=== PATIENT | female | born 1995 ===

== ENCOUNTER 2018-07-08 09:31 | Emergency (ER) | payer OTHER ==
[2018-07-08 09:54] VITALS: BMI 25.0
[2018-07-08 09:57] VITALS: O2SAT 100
[2018-07-08 10:08] LABS: HCG,QUALITATIVE URINE NEGATIVE (NEGATIVE)
[2018-07-08 10:11] LABS: SQUAMOUS EPITHIAL 4 /hpf (0-5); URINE BACTERIA FEW (<OCC); URINE BILIRUBIN NEGATIVE (NEGATIVE); URINE BLOOD NEGATIVE (NEGATIVE); URINE CLARITY Hazy (Clear); URINE COLOR Yellow (YELLOW); URINE GLUCOSE (UA) NORMAL (Normal); URINE LEUKOCYTE ESTERASE NEG Leu/uL (Negative); URINE PROTEIN NEGATIVE (NEGATIVE); URINE UROBILINOGEN NORMAL mg/dL (0.2-1.0)
[2018-07-08 10:24] LABS: HCG,QUALITATIVE URINE POSITIVE (NEGATIVE)
--- NOTE | 2018-07-08 10:25 | C.PDOC ---
History Of Present Illness 22 year old female presents to the ED for evaluation of suprapubic pain and nausea which began around one month ago. Patient states her period has been irregular and her last menstrual period was two months ago. She is unsure if she is . Patient denies fever, chills, dysuria, vaginal bleeding, or abnormal vaginal discharge. Time Seen by Provider: 07/08/18 10:13 Chief Complaint (Nursing): Abdominal Pain History Per: Patient History/Exam Limitations: no limitations Onset/Duration Of Symptoms: Other (one month ) Current Symptoms Are (Timing): Still Present Location Of Pain/Discomfort: Suprapubic Radiation Of Pain To:: None Quality Of Discomfort: "Pain" Associated Symptoms: Nausea. denies: Fever, Chills, Urinary Symptoms Abnormal Vaginal Bleeding: No Last Menstral Period: two months ago Past Medical History Reviewed: Historical Data, Nursing Documentation, Vital Signs Vital Signs: Last Vital Signs Temp 97.5 F L 07/08/18 09:54 Pulse 103 H 07/08/18 09:54 Resp 18 07/08/18 09:54 BP 116/74 07/08/18 09:54 Pulse Ox 100 07/08/18 09:54 - Medical History PMH: No Chronic Diseases Surgical History: No Surg Hx Family History: States: Unknown Family Hx - Social History Hx Alcohol Use: No Hx Substance Use: No - Immunization History Hx Tetanus Toxoid Vaccination: No Hx Influenza Vaccination: No Hx Pneumococcal Vaccination: No Review Of Systems Constitutional: Negative for: Fever Gastrointestinal: Positive for: Nausea, Abdominal Pain (suprapubic ) Genitourinary: Negative for: Dysuria, Vaginal Discharge, Vaginal Bleeding Physical Exam - Physical Exam Appears: Non-toxic, No Acute Distress Skin: Normal Color, Warm, Dry Head: Atraumatic, Normacephalic Eye(s): bilateral: Normal Inspection Oral Mucosa: Moist Neck: Supple Chest: Symmetrical, No Deformity Gastrointestinal/Abdominal: Soft, Tenderness (minimal, suprapubic ), No Guarding, No Rebound Extremity: Normal ROM, Capillary Refill (less than 2 seconds ) Neurological/Psych: Oriented x3, Normal Speech, Normal Cognition ED Course And Treatment - Laboratory Results Lab Results: Urine Color Yellow (YELLOW) 07/08/18 10:02 Urine Clarity Hazy (Clear) 07/08/18 10:02 Urine pH 5.0 (5.0-8.0) 07/08/18 10:02 Ur Specific Reva 1.018 (1.003-1.030) 07/08/18 10:02 Urine Protein Negative mg/dL (NEGATIVE) 07/08/18 10:02 Urine Glucose (UA) Normal mg/dL (Normal) 07/08/18 10:02 Urine Ketones Negative mg/dL (NEGATIVE) 07/08/18 10:02 Urine Blood Negative (NEGATIVE) 07/08/18 10:02 Urine Nitrate Negative (NEGATIVE) 07/08/18 10:02 Urine Bilirubin Negative (NEGATIVE) 07/08/18 10:02 Urine Urobilinogen Normal mg/dL (0.2-1.0) 07/08/18 10:02 Ur Leukocyte Esterase Neg Emily/uL (Negative) 07/08/18 10:02 Urine WBC (Auto) 1 /hpf (0-5) 07/08/18 10:02 Ur Squamous Epith Cells 4 /hpf (0-5) 07/08/18 10:02 Urine Bacteria Few (<OCC) H 07/08/18 10:02 Urine HCG, Qual Positive (NEGATIVE) 07/08/18 10:15 Urine HCG, Qual Positive (NEGATIVE) 07/08/18 10:15 O2 Sat by Pulse Oximetry: 100 (on RA) Pulse Ox Interpretation: Normal - CT Scan/US OB ultrasound Other Rad Studies (CT/US): Read By Radiologist, Radiology Report Reviewed CT/US Interpretation: Indication: - pain. Comparison: None available. Technique: 1st trimester ultrasound. Findings: The uterus measures approximately 3.8 x 7.3 x 9.1 cm. Anteverted. Cervix length measures nima roximately 4.4 cm. There is a single intrauterine fetus present. 3 mm yolk sac. The gestational sac measures 4.7 cm and is compatible with a gestational age of 10 weeks 2 days. The crown-rump length measures 3.3 cm and is compatible with a gestational age of 10 weeks 2 days. There is heart motion which measured 150.2 BPM. The right ovary measures 3.5 x 2.2 x 4.2 cm. The left ovary measures 3.4 x 2.6 x 3.9 cm. Blood flow was demonstrated to both ovaries. Impression: Live single intrauterine with estimated gestational age 10 weeks 2 days. heart rate 150.2 bpm. Advise an anomaly screen at 16-18 weeks gestational age Medical Decision Making Medical Decision Making: Impression: 22 year old female with suprapubic abdominal pain, nausea Plan: * urinalysis * reassess and disposition Progress: Urinalysis ordered and reviewed. Positive urine test noted. Ultrasound ordered as patient has pelvic pain. She denies vaginal bleeding. Ultrasound done, single live IUP noted. Results discussed with patient. Rx written for vitamins. Advised outpatient followup with marketing operations associate. Return to the ED for any new or worsening symptoms. Disposition - Disposition Disposition: HOME/ ROUTINE Disposition Time: 13:30 Condition: GOOD Additional Instructions: MARCIAL BYRD, thank you for letting us take care of you today. Your provider was Gena Grant MD and you were treated for VAGINAL PAIN. The emergency medical care you received today was directed at your acute symptoms. If you were prescribed any medication, please fill it and take as directed. It may take several days for your symptoms to resolve. Return to the Emergency Department if your symptoms worsen, do not improve, or if you have any other problems. Please contact your doctor or call one of the physicians/clinics you have been referred to that are listed on the Patient Visit Information form that is included in your discharge packet. Bring any paperwork you were given at discharge with you along with any medications you are taking to your follow up visit. Our treatment cannot replace ongoing medical care by a primary care provider outside of the emergency department. Thank you for allowing the [facility] team to be part of your care today. If you had an X-Ray or CT scan: A Radiologist will review the ED reading if any change in treatment is needed we will contact you. If you had a blood, urine, or wound culture: It will take several days for the results, if any change in treatment is needed we will contact you. If you had an STI test: It will take 48 hours for the results. Please call after 1 week if you have not heard back. Prescriptions: Pnv No.95/Ferrous Fum/Folic AC [Prenavite] 1 tab PO DAILY #30 tab Instructions: - The Third Month Forms: Dubaki (Malagasy) Print Language: NEPALI - Clinical Impression Clinical Impression: Abdominal pain affecting - Scribe Statement The provider has reviewed the documentation as recorded by the Scribe (Corrie Maciel) Provider Attestation: All medical record entries made by the Scribe were at my direction and personally dictated by me. I have reviewed the chart and agree that the record accurately reflects my personal performance of the history, physical exam, medical decision making, and the department course for this patient. I have also personally directed, reviewed, and agree with the discharge instructions and disposition.
[2018-07-08 10:32] LABS: SQUAMOUS EPITHIAL 10 /hpf (0-5); URINE BACTERIA RARE (<OCC); URINE BILIRUBIN NEGATIVE (NEGATIVE); URINE BLOOD NEGATIVE (NEGATIVE); URINE CLARITY Hazy (Clear); URINE COLOR Yellow (YELLOW); URINE GLUCOSE (UA) NORMAL (Normal); URINE LEUKOCYTE ESTERASE 3+ Leu/uL (Negative); URINE PROTEIN 1+ mg/dL (NEGATIVE)
[2018-07-08 11:46] VITALS: BP 119/76; PULSE 85; RESP 20; TEMP 98.2
--- NOTE | 2018-07-08 12:56 | US ---
Indication: - pain Comparison: None available. Technique: 1st trimester ultrasound Findings: The uterus measures approximately 3.8 x 7.3 x 9.1 cm. Anteverted. Cervix length measures approximately 4.4 cm. There is a single intrauterine fetus present. 3 mm yolk sac. The gestational sac measures 4.7 cm and is compatible with a gestational age of 10 weeks 2 days. The crown-rump length measures 3.3 cm and is compatible with a gestational age of 10 weeks 2 days. There is heart motion which measured 150.2 BPM. The right ovary measures 3.5 x 2.2 x 4.2 cm. The left ovary measures 3.4 x 2.6 x 3.9 cm. Blood flow was demonstrated to both ovaries. Impression: Live single intrauterine with estimated gestational age 10 weeks 2 days. heart rate 150.2 bpm. Advise an anomaly screen at 16-18 weeks gestational age
== END 2018-07-08 13:46 | disposition home or self-care (01) ==
LOC: C.ER 09:31
DX: O26.891 Other specified pregnancy related conditions, first trimester (principal); Z3A.10 10 weeks gestation of pregnancy; R10.2 Pelvic and perineal pain

== ENCOUNTER 2018-07-12 11:18 | Emergency (ER) | payer OTHER ==
[2018-07-12 11:18] VITALS: BMI 25.0
[2018-07-12 11:28] VITALS: RESP 16
[2018-07-12 12:22] LABS: BASO % 0.4 % (0.0-2.0); EOS # 0.1 K/uL (0.0-0.7); EOS % 0.5 % (0.0-4.0); HEMOGLOBIN 13.7 g/dL (11.0-16.0); LYMPH # 1.6 K/uL (1.0-4.3); LYMPH % 17.3 % (20.0-40.0); MEAN CELL VOLUME 92.2 fL (81.0-99.0); MEAN CORPUSCULAR HEMOGLOBIN 31.4 pg (27.0-31.0); MEAN PLATELET VOLUME 8.4 fL (7.2-11.7); MONO # 0.5 K/uL (0.0-0.8); NEUT # 7.3 K/uL (1.8-7.0); NEUT % 76.8 % (50.0-75.0); RBC 4.36 Mil/uL (3.80-5.20); RED CELL DISTRIBUTION WIDTH 13.5 % (11.5-14.5); WHITE BLOOD COUNT 9.4 K/uL (4.8-10.8)
[2018-07-12 12:36] LABS: ALB/GLOB RATIO 1.4 (1.0-2.1); ALBUMIN 4.2 g/dL (3.5-5.0); ALT/SGPT 17 U/L (9-52); AST/SGOT 17 U/L (14-36); BLOOD UREA NITROGEN 6 mg/dL (7-17); CALCIUM 9.1 mg/dl (8.6-10.4); GFR NON-AFRICAN AMERICAN > 60
--- NOTE | 2018-07-12 13:38 | US ---
Indication: 10 w preg with vag bleeding Comparison: 1st trimester ultrasound performed 07/08/18 Technique: Transabdominal pelvic ultrasound. Findings: Uterus measures approximately 10.5 x 8.2 x 8.8 cm. Anteverted. Cervix length measures approximately 3.5 cm. There is a single intrauterine fetus present. The crown-rump length measures 3.9 cm and is compatible with a gestational age of 10 weeks 6 days. There is heart motion which measured 158.8 BPM. The right ovary measures 3.6 x 2.0 x 3.5 cm. The left ovary measures 3.6 x 2.3 x 3.5 cm. Blood flow was demonstrated to both ovaries. Impression: Live single intrauterine with estimated gestational age 10 weeks 6 days by crown-rump length calculation. heart rate 158.8 bpm. Advise an anomaly screen at 16-18 weeks gestational age
--- NOTE | 2018-07-12 14:39 | C.PDOC ---
History Of Present Illness 22 y/o female approx 10 weeks preg, seen in ed last week, presents with mild (one pad) vaginal bleeding since last night. c/o mild left sided pelvic pain. no urinary symptoms. us last week with +iup with heartbeat. Time Seen by Provider: 07/12/18 11:57 Chief Complaint (Nursing): Female Genitourinary History Per: Patient History/Exam Limitations: no limitations Onset/Duration Of Symptoms: Days (2) Current Symptoms Are (Timing): Still Present Severity: Mild Quality Of Discomfort: Unable To Describe Associated Symptoms: denies: Fever, Chills, Nausea, Vomiting, Diarrhea Alleviating Factors: None Past Medical History Reviewed: Historical Data, Nursing Documentation, Vital Signs Vital Signs: Last Vital Signs Temp 98.1 F 07/12/18 11:22 Pulse 76 07/12/18 11:22 Resp 16 07/12/18 11:22 BP 122/71 07/12/18 11:22 Pulse Ox 98 07/12/18 11:22 - Medical History PMH: No Chronic Diseases Family History: States: Unknown Family Hx - Social History Hx Alcohol Use: No Hx Substance Use: No - Immunization History Hx Tetanus Toxoid Vaccination: No Hx Influenza Vaccination: No Hx Pneumococcal Vaccination: No Review Of Systems Constitutional: Negative for: Fever, Chills Eyes: Negative for: Pain ENT: Negative for: Ear Pain, Throat Pain Cardiovascular: Negative for: Chest Pain Gastrointestinal: Negative for: Nausea, Vomiting, Abdominal Pain, Diarrhea Genitourinary: Positive for: Vaginal Bleeding. Negative for: Dysuria, Vaginal Discharge Skin: Negative for: Rash Physical Exam - Physical Exam Appears: Non-toxic, No Acute Distress Skin: Warm, Dry Head: Atraumatic, Normacephalic Oral Mucosa: Moist Neck: Supple Cardiovascular: Rhythm Regular, No Murmur Respiratory: No Decreased Breath Sounds, No Wheezing Gastrointestinal/Abdominal: Bowel Sounds, Soft, No Tenderness Back: No CVA Tenderness Neurological/Psych: Oriented x3, Normal Speech, Normal Cognition ED Course And Treatment - Laboratory Results Result Diagrams: 07/12/18 12:14 07/12/18 12:14 Lab Results: Total Bilirubin 0.3 mg/dL (0.2-1.3) 07/12/18 12:14 AST 17 U/L (14-36) 07/12/18 12:14 ALT 17 U/L (9-52) 07/12/18 12:14 Alkaline Phosphatase 57 U/L (38-126) 07/12/18 12:14 Total Protein 7.3 g/dL (6.3-8.3) 07/12/18 12:14 Albumin 4.2 g/dL (3.5-5.0) 07/12/18 12:14 Globulin 3.1 gm/dL (2.2-3.9) 07/12/18 12:14 Albumin/Globulin Ratio 1.4 (1.0-2.1) 07/12/18 12:14 Beta HCG, Quant 017990.00 mIU/ML 07/12/18 12:14 O2 Sat by Pulse Oximetry: 98 Medical Decision Making Medical Decision Making: pt with vag spotting; 10 weeks preg blood type O positive. us shows iup with fhb. no rhogam needed. advice pelvic rest. f/u dry curer. treated with macrobid for uti Disposition Counseled Patient/Family Regarding: Diagnosis, Need For Followup, Rx Given - Disposition [facility] Disposition: HOME/ ROUTINE Disposition Time: 15:06 Condition: GOOD Additional Instructions: Por favor, tome antibiticos segn lo prescrito hasta que se complete. Sheng fausto jt con el obstetra para la atencin . Recomiende que no ponga nada en la vagina (sin sexo, sin tampones, sin duchas) hasta que el obstetra lucy a [place] mdico. Regrese a la paul de emergencias para un sangrado vaginal abundante (remojar fausto almohadilla por hora), peor dolor o cualquier otro concentrador. Please take antibiotics as prescribed until completed. Make appointment with machinist wood for pre- care. Recommend that you do not put anything in vagina (no sex, no tampons, no douching) until oyu are seen by machinist wood. Return to ER for heavy vaginal bleeding (soaking one pad per hour), worse pain or any other conconers. Prescriptions: Nitrofurantoin Macrocrystals [Macrobid] 100 mg PO BID #14 cap Instructions: Urinary Tract Infection, Adult (DC), Threatened Miscarriage (DC) Forms: Gen Discharge Inst Greenlandic, [facility] (Greenlandic) Print Language: WELSH - Clinical Impression Clinical Impression: Threatened , UTI (urinary tract infection)
[2018-07-12 14:44] LABS: SQUAMOUS EPITHIAL 17 /hpf (0-5); URINE BACTERIA RARE (<OCC); URINE BILIRUBIN NEGATIVE (NEGATIVE); URINE BLOOD 1+ (NEGATIVE); URINE CLARITY Hazy (Clear); URINE COLOR Yellow (YELLOW); URINE GLUCOSE (UA) 1+ mg/dL (Normal); URINE LEUKOCYTE ESTERASE 3+ Leu/uL (Negative); URINE PROTEIN 1+ mg/dL (NEGATIVE)
[2018-07-12 15:15] VITALS: BP 105/69; PULSE 84; TEMP 98.6
[2018-07-12 16:48] VITALS: O2SAT 98
== END 2018-07-12 15:24 | disposition home or self-care (01) ==
LOC: C.ER 11:18
DX: O20.0 Threatened abortion (principal); O23.41 Unspecified infection of urinary tract in pregnancy, first trimester; Z3A.10 10 weeks gestation of pregnancy